=== PATIENT | male | born 1990 | race Caucasian/White ===

== ENCOUNTER 2019-06-30 15:38 | Emergency (ER) | payer OTHER, BC, SELFPAY ==
--- NOTE | ~2019-06-30 | XR_ITS ---
EXAMINATION: XR chest 2V 06/30/2019 16:19 INDICATION: Chlorine chemical exposure. Cough. PROCEDURE: 2 view chest COMPARISON: No prior studies for comparison. FINDINGS: The lungs are clear. The cardiomediastinal silhouette is within normal limits. There are no pleural effusions. There is no pneumothorax suspected. IMPRESSION: 1: NO ACUTE CARDIOPULMONARY DISEASE. Reviewed, dictated and finalized at location A. [employer]
[2019-06-30 15:45] VITALS: BP 134/80; PULSE 76; RESP 16; TEMP 36.8; O2SAT 97
--- NOTE | 2019-06-30 16:20 | PC.NURSE ---
Ky lens placed bilaterally and connected to NS 1L each for irrigation of bilateral eyes over 30 minutes. Tetracaine drops instilled bilaterally prior to placement of Ky lens. Pt tolerated well.
[2019-06-30] MEDS: TETRACAINE HCL 0.5% OPHTH SOLN 4 ML BTL 2 DROP EACH EYE (16:27)
--- NOTE | 2019-06-30 16:30 | PC.NURSE ---
[facility] contacted for recommendations. Spoke with David, case #[id number]. Recommendations as follows: -Check occular pH after eye irrigation complete, if elevated >7 repeat irrigation. -Consider evaluation for corneal abrasion. If abrasion noted determine tetanus status, prescribe antibiotic eye drops/ointment, optho f/u. Dr Waterman aware.
--- NOTE | 2019-06-30 16:45 | ED.GENADULT ---
HPI - General Adult General Chief complaint: Environmental Exposure Stated complaint: Chlorine in eye and on arms Time Seen by Provider: 06/30/19 15:45 Source: patient Mode of arrival: ambulatory Limitations: no limitations History of Present Illness HPI narrative: 29-year-old man who was previously well comes in today complaining of eye discomfort, burning scan and a cough that started this afternoon. 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 He states that he irrigated his eyes at the site and took a shower afterwards. He denies wheezing, shortness of breath the or changes in his vision. He denies smoking history and states that he had exercise-induced asthma as a child. Onset (ago): hour(s) (2) Location: face, eyes, chest, abdomen, upper extremity and lower extremity Radiation: non-radiation Severity: mild Quality: burning Pain Consistency: constant Relieving factors: none Exacerbating factors: none Related Data Home Medications Medication Instructions Recorded Confirmed cetirizine 10 mg PO DAILY 06/30/19 06/30/19 Allergies Allergy/AdvReac Type Severity Reaction Status Date / Time No Known Allergies Allergy Verified 06/30/19 15:52 Review of Systems Constitutional: Constitutional: Denies chills, Denies fatigue, Denies fever(s) and Denies weakness Eyes: Eyes: Reports as per HPI, Denies change in vision and Denies photophobia ENT: Denies dysphagia, Denies nasal congestion and Denies sore throat Cardiovascular: Cardiovascular: Denies chest pain, Denies rapid heart rate and Denies radiating jaw, neck or arm pain Respiratory: Respiratory: Reports as per HPI, Denies chest congestion, Reports cough, Denies dyspnea and Denies wheezing Gastrointestinal: Gastrointestinal: Denies abdominal pain, Denies diarrhea, Denies nausea and Denies vomiting Genitourinary: Genitourinary: Denies hematuria and Denies dysuria Musculoskeletal: Musculoskeletal: Denies back pain, Denies arthralgias, Denies joint swelling and Denies muscle cramps Integumentary/Breasts: Skin/Breast: Denies pruritus, Reports erythema and Denies rash Neurologic: Denies vertigo, Denies dizziness and Denies syncope Psychiatric: Psychiatric: Denies anxiety and Denies depression Endocrine: Endocrine: Denies polydipsia and Denies polyuria Hematologic/Lymphatic: Hematologic/Lymphatic: Denies easy bleeding and Denies easy bruising Allergic/Immunologic: Allergic/Immunologic: Denies lip swelling and Denies wheezing [facility] Past Medical History Medical History Exercise-induced asthma Social History Social History Smoking status: Never smoker Alcohol intake: never Substance use: never Living arrangements: with family Exam Const: General: healthy appearing, no acute distress and alert Orientation/consciousness: patient oriented x3 Limitations: no limitations HENMT: Ears: TM's normal bilaterally and EAC's normal Mouth: Yes Normal oral and palatal mucosa present and Yes moist mucous membranes Throat: posterior oropharynx normal Eyes: Conjunctivae: conjunctivae normal Pupils: Equal, round and reactive pupils present EOM: EOMs intact bilaterally Direct Ophthalmoscopy: no photophobia Resp: Effort & Inspection: normal respiratory effort, not labored and no retractions Auscultation: clear to auscultation bilaterally, no rales, no rhonchi and no wheezes Cardio: Rate: regular rate Rhythm: regular rhythm Heart sounds: no murmurs GI: Inspection: non-distended GI Palp: Yes Soft to palpation and No Tenderness to palpation present (GI) Skin: General skin exam: normal color, no jaundice and no pallor Other: Patchy erythema over forearms. Neuro: General: patient oriented x3, moves all extremities, no focal motor deficits and CN's II-XI intact bilaterally Ex
--- NOTE | 2019-06-30 17:05 | PC.NURSE ---
Eye irrigation complete. NS 900 mL instilled into each eye during irrigation. Ky lens removed intact bilaterally.
--- NOTE | 2019-06-30 17:13 | PC.NURSE ---
Dr Waterman at bedside to evaluate for corneal abrasion at this time.
--- NOTE | 2019-06-30 17:20 | PC.NURSE ---
After eye exam per Dr Waterman, occular pH determined to be 8.0-8.5 Orders rcvd to repeat irrigation of eyes using NS and infusing over 30 minutes. [place] Lens placed bilaterally, connected to 1L NS each eye and irrigation re-started. Pt continues to deny pain.
--- NOTE | 2019-06-30 17:51 | PC.NURSE ---
Second irrigation of eyes is complete. Each eye received a total of 900 mL of NS during second irrigation. Pt tolerated well. Awaiting re-eval per Dr Waterman.
[2019-06-30 18:00] VITALS: BP 125/83; PULSE 75; RESP 18; O2SAT 100
== END 2019-06-30 18:05 | disposition home or self-care (01) ==
PROVIDERS: Emergency Provider Emergency Medicine; PCP Family Medicine
DX: T49.0X1A Poisoning by local antifungal, anti-infective and anti-inflammatory drugs, accidental (unintentional), initial encounter (principal); T26.62XA Corrosion of cornea and conjunctival sac, left eye, initial encounter; T26.61XA Corrosion of cornea and conjunctival sac, right eye, initial encounter
CPT/HCPCS: 71046; 99282; 99283; A9270; J7030